=== PATIENT | female | born 1970 | race Caucasian/White ===

== ENCOUNTER 2018-09-08 12:23 | Day surgery (SDC) | payer OTHER ==
[2018-09-07 12:35] VITALS: BMI 52.3
[2018-09-08] MEDS ORDERED: PROPOFOL 20 ML ONE (12:25)
[2018-09-08] MEDS ORDERED: fentaNYL CITRATE 250 MCG/5 ML VIAL ONE (12:25)
[2018-09-08] MEDS ORDERED: SUCCINYLCHOLINE CHLORIDE 200 MG/10 ML VIAL ONE (12:26)
[2018-09-08] MEDS ORDERED: MIDAZOLAM HCL 2 MG/2 ML SINGLE DOSE VIAL ONE (12:27)
[2018-09-08] MEDS ORDERED: LIDOCAINE HCL 1%, 10 MG/ML (20ML VIAL) ONE (13:32)
[2018-09-08] MEDS ORDERED: BUPIVACAINE HCL/PF 0.5% (5MG/ML) 10 ML VIAL ONE (13:32)
--- NOTE | 2018-09-08 13:52 | HP ---
History & Physical Update - History History: No Change - Physical Physical: No Change - Assessment Assessment: No Change - Plan Plan: No Change
[2018-09-08] MEDS ORDERED: IBUPROFEN 800 MG/8 ML IJ IVPB SCH (14:00)
[2018-09-08] MEDS ORDERED: DEXTROSE 5%-0.45% SALINE 1,000 ML IV SCH (14:00)
[2018-09-08] MEDS ORDERED: VASOPRESSIN 20 UNITS/ML VIAL IV ONE ×2 (14:05→14:08)
[2018-09-08] MEDS ORDERED: ceFAZolin SODIUM 1 GM VIAL IVPB ONE (14:07)
[2018-09-08] MEDS ORDERED: EPINEPHrine 1:10,000 (P-F SYR) 1 MG/10 ML DISP.SYRIN ONE (14:34)
[2018-09-08] MEDS ORDERED: ePHEDrine SULFATE 50 MG/1 ML AMPULE ONE (14:36)
[2018-09-08] MEDS ORDERED: ACETAMINOPHEN INJECTION 100 ML IVPB ONE (14:41)
[2018-09-08] MEDS ORDERED: ACETAMINOPHEN 1000 MG/100 ML VIAL (NON FORMULARY) IVPB ONE (14:42)
[2018-09-08 18:00] VITALS: BP 139/72; PULSE 96; TEMP 98.5
--- NOTE | 2018-09-09 10:35 | OP ---
DATE OF OPERATION: 09/08/2018 SURGEON: Abelardo Moreno MD PREOPERATIVE DIAGNOSIS: Stress urinary incontinence, hypermobile urethra. POSTOPERATIVE DIAGNOSIS: Stress urinary incontinence, hypermobile urethra. PROCEDURE: Suburethral sling placement and cystoscopy. ANESTHESIA: General. ESTIMATED BLOOD LOSS: 200 mL. DRAINS: Lopez catheter. SPECIMENS: None. PREOPERATIVE INDICATIONS: The patient is 47-year-old female who has stress urinary incontinence and hypermobile urethra proven on urodynamic exam. She comes to the OR for a sling placement. OPERATION: The patient was brought to the OR, placed on the table in the supine position, given general anesthesia and IV antibiotics, and placed in the modified lithotomy position. The groin was prepped and draped sterilely. Time-out was performed. Lopez catheter was placed. The mid third of the urethra was marked out with a marking pen. Putrescin was injected underneath the vagina mucosa hydrodissecting. Incision was then made over the midline of the urethra. The vaginal mucosa was sharply dissected off the periurethral tissues in a lateral fashion. The bladder was emptied. The mini-sling was then applied, transobturator, using the trocars under fingertip control. No buttonholing of the vaginal mucosa was identified. The sling was placed on both sides. Cystoscopy was performed and revealed no evidence of any perforation or bleeding or injury. Lopez catheter was replaced. The sling was tightened using a tightening suture so it laid flat with no tension over the portion of the urethra. The excess suture was then excised. The wound was then closed using 2-0 Vicryl suture. Vaginal packing was left in place, and the patient was then woken up. ABELARDO MORENO M.D. [id number]
== END 2018-09-08 18:05 | disposition home or self-care (01) ==
LOC: JASU-SURG 12:23
PROVIDERS: ATTEND Urology
PROC: 0TSD4ZZ Reposition Urethra, Percutaneous Endoscopic Approach (ICD-10-PCS; principal; 2018-09-08 13:30)
DX: N39.3 Stress incontinence (female) (male) (principal); N36.41 Hypermobility of urethra
CPT/HCPCS: 57288; C1771; 84703; 94760; J0131

== ENCOUNTER 2019-05-26 09:52 | Emergency (ER) | payer OTHER ==
[2019-05-26 09:59] VITALS: BP 167/97; PULSE 106; TEMP 98.1; BMI 50.5
[2019-05-26] MEDS ORDERED: SUMATRIPTAN SUCCINATE 6 MG/0.5 ML VIAL SQ ONE (10:41)
[2019-05-26] MEDS ORDERED: MECLIZINE HCL 25 MG TABLET (FP) PO ONE (10:41)
[2019-05-26] MEDS ORDERED: MECLIZINE HCL 25 MG TABLET (FP) ONE (10:50)
[2019-05-26] MEDS ORDERED: SUMATRIPTAN SUCCINATE 6 MG/0.5 ML VIAL ONE (10:50)
--- NOTE | 2019-05-26 10:58 | PDOC ---
History of Present Illness - General Chief Complaint: Headache Stated Complaint: CHRONIC HEADACHE Time Seen by Provider: 05/26/19 10:30 History Source: Patient Exam Limitations: Clinical Condition - History of Present Illness Initial Comments: 05/26/19 10:52 Patient with history of gastritis presented with complaint of worsening posterior headache, photophobia, spinning sensation with dizziness since yesterday. Patient reported she had a similar episode yesterday morning when she got off from bed in the morning with dizziness and spinning sensation as soon as she got up from bed which resolved after few minutes but came back again this morning with worsening headache and whistling noise in the right ear. Patient report history of intermittent mild headaches but not this severe. Patient denies history of migraines or vertigo. Denies nausea, vomiting, chest pain, shortness of breath, palpitation. Denies any other symptoms. Patient did not take anything for symptoms Timing/Duration: reports: 24 hours, increasing Severity: Yes: moderate Associated Symptoms: reports: denies symptoms Past History - Past Medical History Allergies/Adverse Reactions: Allergies Allergy/AdvReac Type Severity Reaction Status Date / Time Penicillins Allergy Unknown Rash Verified 05/26/19 09:59 Home Medications: Ambulatory Orders levoFLOXacin [Levaquin -] 500 mg PO DAILY #7 tablet 09/08/18 Butalb/Acetaminophen/Caffeine [Fioricet 50-300-40 mg Capsule] 1 each PO Q6H PRN #20 capsule 05/26/19 Anemia: No Asthma: No Cancer: No Cardiac Disorders: No CVA: No COPD: No CHF: No Dementia: No Diabetes: No GI Disorders: No Disorders: No HTN: No Hypercholesterolemia: No Liver Disease: No Seizures: No Thyroid Disease: No - Surgical History Abdominal Surgery: No Appendectomy: No Cardiac Surgery: No Cholecystectomy: No Lung Surgery: No Neurologic Surgery: No Orthopedic Surgery: No - Immunization History Immunization Up to Date: Yes - Psycho Social/Smoking Cessation Hx Smoking History: Never smoked Have you smoked in the past 12 months: No Information on smoking cessation initiated: No Hx Alcohol Use: No Drug/Substance Use Hx: No Substance Use Type: None Review of Systems - Review of Systems Able to Perform ROS?: Yes Is the patient limited Malian proficient: No Constitutional: No: Chills, Fever, Malaise HEENTM: Yes: Symptoms Reported, See HPI, Recent change in vision (photophobia). No: Eye Pain, Blurred Vision, Tearing, Double Vision, Cataracts, Ear Pain, Ocular Prothesis, Ear Discharge, Nose Pain, Nose Congestion, Tinnitus, Nose Bleeding, Hearing Loss, Throat Pain, Throat Swelling, Mouth Pain, Dental Problems, Difficulty Swallowing, Mouth Swelling, Other Respiratory: No: Symptoms reported, See HPI, Cough, Orthopnea, Shortness of Breath, SOB with Exertion, SOB at Rest, Stridor, Wheezing, Productive cough, Hemoptysis, Other Cardiac (ROS): No: Symptoms Reported, See HPI, Chest Pain, Edema, Irregular Heart Rate, Lightheadedness, Palpitations, Syncope, Chest Tightness, Other ABD/GI: No: Symptoms Reported, Nausea, Vomiting Musculoskeletal: No: Symptoms Reported Integumentary: No: Symptoms Reported Neurological: Yes: Symptoms reported, See HPI, Headache, Dizziness. No: Numbness, Paresthesia, Pre-Existing Deficit, Seizure, Weakness, Unsteady Gait All Other Systems: Reviewed and Negative *Physical Exam - Vital Signs Last Vital Signs Temp Pulse Resp BP Pulse Ox 98.1 F 106 H 19 167/97 97 05/26/19 09:55 05/26/19 09:55 05/26/19 09:55 05/26/19 09:55 05/26/19 09:55 - Physical Exam Comments: 05/26/19 10:56 GENERAL: Well developed, well nourished. Awake and alert in moderate acute distress. HEENT: Normal bilateral external ear canal without erythema. Tympanic membrane normal bilateral. Normocephalic, atraumatic. PERRLA, EOMI. No conjunctival pallor. Sclera are non-icteric. Moist mucous membranes. Oropharynx is clear. NECK: Supple. Full ROM. No JVD. Carotid pulses 2+ and symmetric, without bruits. No thyromegaly. No lymphadenopathy. CARDIOVASCULAR: Regular rate and rhythm. No murmurs, rubs, or gallops. Distal pulses are 2+ and symmetric. PULMONARY: No evidence of respiratory distress. Lungs clear to auscultation bilaterally. No wheezing, rales or rhonchi. ABDOMINAL: Soft. Non-tender. Non-distended. No rebound or guarding. No organomegaly. Normoactive bowel sounds. MUSCULOSKELETAL Normal range of motion at all joints. No bony deformities or tenderness. SKIN: Warm and dry. Normal capillary refill. No rashes. No jaundice. NEUROLOGICAL: Alert, awake, appropriate. Cranial nerves 2-12 intact. No motor deficits in the in face, upper extremities and lower extremities. Normal speech. Toes are down- going bilaterally. Gait is normal without ataxia. PSYCHIATRIC: Cooperative. Good eye contact. Appropriate mood and affect. General Appearance: Yes: Nourished, Appropriately Dressed, Apparent Distress ED Treatment Course - LABORATORY CBC & Chemistry Diagram: 05/26/19 12:20 05/26/19 12:20 - RADIOLOGY Radiology Studies Ordered: Category Date Time Status HEAD CT WITHOUT CONTRAST [CT] Stat CT Scan 05/26/19 10:43 Ordered Medical Decision Making - Medical Decision Making 05/26/19 10:54 Patient with history of gastritis presented with complaint of worsening posterior headache, photophobia, spinning sensation with dizziness since yesterday. Patient reported she had a similar episode yesterday morning when she got off from bed in the morning with dizziness and spinning sensation as soon as she got up from bed which resolved after few minutes but came back again this morning with worsening headache and whistling noise in the right ear. Patient report history of intermittent mild headaches but not this severe. Patient denies history of migraines or vertigo. Denies nausea, vomiting, chest pain, shortness of breath, palpitation. Denies any other symptoms. Patient did not take anything for symptoms Exam significant for patient with acute distress and normal neuro exam. Bilateral ear canals normal. Patient symptoms likely migraine headaches with aura versus vertigo versus less likely intracranial mass. Imitrex ordered for migraine and meclizine 25 mg p.o. ordered for vertigo. Head CT without contrast ordered to rule out acute intracranial pathology. Reassess after imaging 05/26/19 12:[address] unremarkable. Patient given imitrex and meclizine but report still have HOLDER. IV reglan 10mg, Tylenol 1g IV and NS 1L ordered. CBC and chemistry labs ordered. EKG shows NSR. 05/26/19 14:18 Patient report marked improvement in symptoms after IV Tylenol, fluids and reglan and report now only has 3/10 headache from 10/10 HOLDER on presentation. Patient stable for discharge on fioricet prn for HOLDER with neurologist f/u. Strict f/u instruction given to Pt including worsening HOLDER and advised to come right back to ED for reassessment. Patient voiced understanding and stable for discharge Discharge - Discharge Information Problems reviewed: Yes Clinical Impression/Diagnosis: Migraine headache with aura Qualifiers: Status migrainosus presence: without status migrainosus Intractability: not intractable Qualified Code(s): G43.109 - Migraine with aura, not intractable, without status migrainosus Condition: Stable Disposition: HOME - Admission No - Additional Discharge Information Prescriptions: Butalb/Acetaminophen/Caffeine [Fioricet 50-300-40 mg Capsule] 1 each PO Q6H PRN #20 capsule PRN Reason: Headache - Follow up/Referral Referrals: Orville Luke MD [Staff Physician] - - Patient Discharge Instructions Patient Printed Discharge Instructions: DI for Migraine Additional Instructions: Your labs and head CAT scan is normal. your symptoms is likely caused by migraine headache. Take prescribed medication as needed for Headaches. Follow- up with referred neurologist. Come back to ED if worsening headaches, blurry vision, change in vision, dizziness with vomiting - Post Discharge Activity
[2019-05-26] MEDS ORDERED: ACETAMINOPHEN INJECTION 100 ML IVPB ONE (11:49)
[2019-05-26] MEDS ORDERED: SODIUM CHLORIDE 1,000 ML IV STA (11:49)
[2019-05-26] MEDS ORDERED: METOCLOPRAMIDE HCL INJECTION 10 MG/2 ML VIAL IVPUSH ONE (11:50)
[2019-05-26] MEDS ORDERED: ACETAMINOPHEN 1000 MG/100 ML VIAL (NON FORMULARY) IVPB ONE (11:50)
--- NOTE | 2019-05-26 12:01 | PDOC ---
*Physical Exam - Vital Signs Last Vital Signs Temp Pulse Resp BP Pulse Ox 98.1 F 106 H 19 167/97 97 05/26/19 09:55 05/26/19 09:55 05/26/19 09:55 05/26/19 09:55 05/26/19 09:55 ED Treatment Course - LABORATORY CBC & Chemistry Diagram: 05/26/19 12:20 05/26/19 12:20 - Medications Given in the ED: ED Medications Discontinued Medications Generic Name Dose Route Start Last Admin Trade Name Radha PRN Reason Stop Dose Admin Meclizine HCl 25 mg 05/26/19 10:41 05/26/19 11:35 Antivert - PO 05/26/19 10:42 25 mg ONCE ONE Administration Sumatriptan Succinate 6 mg 05/26/19 10:41 05/26/19 11:35 Imitrex Injection - SQ 05/26/19 10:42 6 mg ONCE ONE Administration Medical Decision Making - Medical Decision Making 05/26/19 11:51 Ms. Reyes is being seen primarily by SHANIQUE Willingham Pt presents to the Er with a complaint of a headache Her symptoms began actually 2 days ago She awoke with a headache on Wednesday which was frontal Pt took Advil 400mg in the am and then in the evening She fell asleep She had no headache on (yesterday) She awoke this am with a severe occipital headache as well as neck pain She took Advil 800mg (400mg was Advil PM which made her fall asleep) She continue to have a headache No fevers or chills No head trauma Headache is different than typical headache - location and persistence Headache is also associated with dizziness Pt was already given Imitrex and Meclizine Pt appears to be in pain Is slow to respond but is awake and alert Answers questions appropriately RRR CTA No abd tenderness no nuchal rigidity Pt headache is concerning to me GREGORY asked to do basic labs, Place IV, give Reglan and IV tylenol Pt placed in dark room to lay down GREGORY asked to consult neuro He reviewed this patient's case with Dr Luke who was in the ER Dr. Luke states that this patient is likely having a tension headache and would not benefit from a CTA If headache persists, pt can be admitted and he will see her in the hospital 05/26/19 12:03 EKG: NSR rate of 88 bpm , axis nml, intervals nml (including QTc 450ms), no st elevation or depression 05/26/19 13:24 Patient states headache has resolved Laboratory Tests 05/26/19 05/26/19 05/26/19 12:20 12:20 12:20 WBC 10.0 Hgb 13.5 Hct 41.2 Plt Count 318 BUN 13.2 Creatinine 0.7 Serum , Qual Negative Discharge - Discharge Information Problems reviewed: Yes Clinical Impression/Diagnosis: Migraine headache with aura Qualifiers: Status migrainosus presence: without status migrainosus Intractability: not intractable Qualified Code(s): G43.109 - Migraine with aura, not intractable, without status migrainosus Condition: Stable Disposition: HOME - Admission No - Additional Discharge Information Prescriptions: Butalb/Acetaminophen/Caffeine [Fioricet 50-300-40 mg Capsule] 1 each PO Q6H PRN #20 capsule PRN Reason: Headache - Follow up/Referral Referrals: Orville Luke MD [Staff Physician] - - Patient Discharge Instructions Patient Printed Discharge Instructions: DI for Migraine Additional Instructions: Your labs and head CAT scan is normal. your symptoms is likely caused by migraine headache. Take prescribed medication as needed for Headaches. Follow- up with referred neurologist. Come back to ED if worsening headaches, blurry vision, change in vision, dizziness with vomiting - Post Discharge Activity
[2019-05-26 12:40] LABS: BASO % 3.4 % (0-2.0); EOS % 1.8 % (0-4.5); HEMATOCRIT 41.2 % (32.4-45.2); HEMOGLOBIN 13.5 GM/dL (10.7-15.3); LYMPH % 42.6 % (8-40); MCH 30.7 pg (25.7-33.7); MCHC 32.7 g/dl (32.0-36.0); MEAN CELL VOLUME 93.7 fl (80-96); MEAN PLT VOLUME 8.1 fl (7.5-11.1); MONO % 8.2 % (3.8-10.2); PLATELET COUNT 318 K/MM3 (134-434); RBC 4.39 M/mm3 (3.60-5.2); RDW 14.1 % (11.6-15.6)
[2019-05-26 13:00] LABS: ALBUMIN 3.5 g/dl (3.4-5.0); ALK PHOS 92 U/L (45-117); ANION GAP 5 MMOL/L (8-16); BILIRUBIN,TOTAL < 0.1 mg/dL (0.2-1); BLOOD UREA NITROGEN 13.2 mg/dL (7-18); CALCIUM 8.9 mg/dL (8.5-10.1); CHLORIDE 109 mmol/L (98-107); CO2 27 mmol/L (21-32); CREATININE 0.7 mg/dL (0.55-1.3); GLUCOSE,RANDOM 76 mg/dL (74-106); POTASSIUM 4.7 mmol/L (3.5-5.1); SGOT/AST 21 U/L (15-37); SGPT/ALT 32 U/L (13-61); SODIUM 140 mmol/L (136-145); TOT PROT 8.1 g/dl (6.4-8.2)
--- NOTE | 2019-05-29 11:49 | EKG ---
Test Reason : Blood Pressure : / mmHG Vent. Rate : 088 BPM Atrial Rate : 088 BPM P-R Int : 180 ms QRS Dur : 080 ms QT Int : 372 ms P-R-T Axes : 030 004 041 degrees QTc Int : 450 ms NORMAL SINUS RHYTHM NORMAL ECG NO PREVIOUS ECGS AVAILABLE Confirmed by BRGIIDO GUILLEN MD ([id number]) on 05/29/2019 11:49:14 AM Referred By: Confirmed By:BRIGIDO GUILLEN MD
== END 2019-05-26 14:30 | disposition home or self-care (01) ==
LOC: JER 09:52
PROC: 3E0337Z Introduction of Electrolytic and Water Balance Substance into Peripheral Vein, Percutaneous Approach (ICD-10-PCS; principal; 2019-05-26)
PROC: 3E033NZ Introduction of Analgesics, Hypnotics, Sedatives into Peripheral Vein, Percutaneous Approach (ICD-10-PCS; 2019-05-26)
PROC: 3E033GC Introduction of Other Therapeutic Substance into Peripheral Vein, Percutaneous Approach (ICD-10-PCS; 2019-05-26)
PROC: 3E023GC Introduction of Other Therapeutic Substance into Muscle, Percutaneous Approach (ICD-10-PCS; 2019-05-26)
DX: G43.109 Migraine with aura, not intractable, without status migrainosus (principal); Z88.0 Allergy status to penicillin
CPT/HCPCS: 36415; 70450-TC; 80053; 84703; 85025; 93005; 93010; 99282-25; J0131; J7030

== ENCOUNTER 2020-12-31 00:34 | Emergency (ER) | payer OTHER ==
[2020-12-31 01:10] VITALS: TEMP 99.3; BMI 52.7
[2020-12-31] MEDS ORDERED: CLINDAMYCIN 900 MG PREMIX IVPB 900 MG/50 ML BAG IVPB ONE ×2 (01:28→02:10)
[2020-12-31] MEDS ORDERED: ACETAMINOPHEN 1000 MG/100 ML VIAL (NON FORMULARY) IVPB ONE (01:34)
[2020-12-31] MEDS ORDERED: ACETAMINOPHEN INJECTION 100 ML IVPB ONE (02:10)
[2020-12-31 02:38] LABS: HEMATOCRIT 31.3 % (32.4-45.2); HEMOGLOBIN 10.1 GM/dL (10.7-15.3); MCH 29.1 pg (25.7-33.7); MCHC 32.1 g/dl (32.0-36.0); MEAN CELL VOLUME 90.6 fl (80-96); PLATELET COUNT 362 10^3/uL (134-434); RBC 3.46 M/mm3 (3.60-5.2); WHITE BLOOD COUNT 20.7 K/mm3 (4.0-10.0)
[2020-12-31] MEDS ORDERED: SODIUM CHLORIDE 0.9% 500 ML INFUS.BAG IV ONE (02:41)
[2020-12-31] MEDS ORDERED: MORPHINE SULFATE 2 MG/ML VIAL ONE (02:41)
[2020-12-31] MEDS ORDERED: morphine CARPU-JECT 2 MG/1 ML DISP.SYRIN IM ONE (02:41)
[2020-12-31 02:50] VITALS: BP 103/59; PULSE 103
[2020-12-31 03:00] LABS: ALBUMIN 2.5 g/dl (3.4-5.0); BLOOD UREA NITROGEN 10.3 mg/dL (7-18); CALCIUM 7.8 mg/dL (8.5-10.1)
[2020-12-31 03:05] LABS: BILIRUBIN,TOTAL 0.2 mg/dL (0.2-1)
[2020-12-31 03:07] LABS: CREATININE 0.7 mg/dL (0.55-1.3)
== END 2020-12-31 02:40 | disposition short-term general hospital (02) ==
LOC: JER 00:34
PROC: 3E033GC Introduction of Other Therapeutic Substance into Peripheral Vein, Percutaneous Approach (ICD-10-PCS; principal; 2020-12-31)
PROC: 3E023GC Introduction of Other Therapeutic Substance into Muscle, Percutaneous Approach (ICD-10-PCS; principal; 2020-12-31)
DX: N61.0 Mastitis without abscess (principal)
CPT/HCPCS: 36415; 71275-TC; 80053; 82550; 83605; 85027; 86850; 86900; 86901; 87040; 99285-25; C9803; J0131; U0003; U0005

== ENCOUNTER 2021-09-26 11:33 | Emergency (ER) | payer OTHER ==
[2021-09-26 11:54] VITALS: BP 144/65; PULSE 86; TEMP 98.1; BMI 50.8
[2021-09-26] MEDS ORDERED: ACETAMINOPHEN 500 MG TABLET (FP) PO ONE (13:33)
[2021-09-26] MEDS ORDERED: ACETAMINOPHEN 500 MG TABLET (FP) ONE (15:02)
[2021-09-26 15:16] LABS: BASO % 0.7 % (0-2.0); EOS % 1.2 % (0-4.5); HEMATOCRIT 35.5 % (32.4-45.2); HEMOGLOBIN 11.9 GM/dL (10.7-15.3); LYMPH % 45.9 % (8-40); MCH 31.2 pg (25.7-33.7); MCHC 33.6 g/dl (32.0-36.0); MEAN CELL VOLUME 92.6 fl (80-96); MONO % 8.1 % (3.8-10.2); NEUT % 44.1 % (42.8-82.8); PLATELET COUNT 342 10^3/uL (134-434); RBC 3.84 M/mm3 (3.60-5.2); RDW 14.4 % (11.6-15.6); WHITE BLOOD COUNT 9.9 K/mm3 (4.0-10.0)
[2021-09-26 15:21] LABS: EPI CELLS 15 /uL (0-25.1); HYALINE CASTS 1 /uL (0-3.1); URINE APPEARANCE CLEAR; URINE BACTERIA 135 /uL (0-1359); URINE BILIRUBIN NEGATIVE (NEGATIVE); URINE COLOR YELLOW; URINE GLUCOSE (UA) NEGATIVE (NEGATIVE); URINE KETONE TRACE (NEGATIVE); URINE LEUK ESTERASE NEGATIVE (NEGATIVE); URINE NITRITE NEGATIVE (NEGATIVE); URINE PROTEIN NEGATIVE (NEGATIVE); URINE RBC 9 /uL (0-23.9); URINE UROBILINOGEN 0.2 mg/dL (0.2-1.0); URINE WBC 6 /uL (0-25.8)
[2021-09-26 15:22] LABS: INR 1.05 (0.83-1.09); PROTHROMBIN TIME (PATIENT) 12.1 SEC (9.7-13.0)
[2021-09-26 15:25] LABS: ACTIVATED PTT 28.2 SECONDS (25.2-36.5)
[2021-09-26 15:40] LABS: CALCIUM 8.3 mg/dL (8.5-10.1)
[2021-09-26 15:41] LABS: ALBUMIN 3.2 g/dl (3.4-5.0); BLOOD UREA NITROGEN 15.2 mg/dL (7-18)
[2021-09-26 15:44] LABS: CREATININE 0.6 mg/dL (0.55-1.3)
[2021-09-26 15:45] LABS: BILIRUBIN,TOTAL 0.2 mg/dL (0.2-1); TOT PROT 7.8 g/dl (6.4-8.2)
[2021-09-26 15:49] LABS: URINE CRYSTALS CA OXALATE /hpf
== END 2021-09-26 16:53 | disposition home or self-care (01) ==
LOC: JER 11:33
DX: N92.1 Excessive and frequent menstruation with irregular cycle (principal)
CPT/HCPCS: 36415; 76830-TC; 80053; 81003; 84703; 85025; 85610; 85730; 87086; 87491; 87591; 99284-25

== ENCOUNTER 2021-12-17 19:19 | Observation (INO) | payer OTHER ==
[2021-12-17 19:30] VITALS: BMI 51.7
[2021-12-17 23:18] LABS: BASO % 0.2 % (0-2.0); EOS % 1.6 % (0-4.5); HEMATOCRIT 22.1 % (32.4-45.2); LYMPH % 44.9 % (8-40); MCH 26.4 pg (25.7-33.7); MCHC 31.5 g/dl (32.0-36.0); MEAN CELL VOLUME 83.7 fl (80-96); MEAN PLT VOLUME 6.6 fl (7.5-11.1); MONO % 8.5 % (3.8-10.2); NEUT % 44.8 % (42.8-82.8); PLATELET COUNT 508 10^3/uL (134-434); RBC 2.64 M/mm3 (3.60-5.2); RDW 16.8 % (11.6-15.6); WHITE BLOOD COUNT 12.7 K/mm3 (4.0-10.0)
[2021-12-17 23:20] LABS: HEMOGLOBIN 6.9 GM/dL (10.7-15.3)
[2021-12-17 23:24] LABS: INR 1.04 (0.83-1.09)
[2021-12-17 23:42] LABS: ALBUMIN 3.1 g/dl (3.4-5.0); CALCIUM 8.4 mg/dL (8.5-10.1)
[2021-12-17 23:43] LABS: BLOOD UREA NITROGEN 13.6 mg/dL (7-18)
[2021-12-17 23:46] LABS: CREATININE 0.6 mg/dL (0.55-1.3)
[2021-12-17 23:47] LABS: BILIRUBIN,TOTAL 0.1 mg/dL (0.2-1); TOT PROT 7.4 g/dl (6.4-8.2)
[2021-12-18 09:28] LABS: BASO % 0.5 % (0-2.0); EOS % 1.9 % (0-4.5); HEMATOCRIT 23.7 % (32.4-45.2); HEMOGLOBIN 7.7 GM/dL (10.7-15.3); MCH 27.4 pg (25.7-33.7); MCHC 32.4 g/dl (32.0-36.0); MEAN CELL VOLUME 84.8 fl (80-96); MEAN PLT VOLUME 7.3 fl (7.5-11.1); MONO % 9.3 % (3.8-10.2); NEUT % 57.3 % (42.8-82.8); PLATELET COUNT 457 10^3/uL (134-434); RBC 2.79 M/mm3 (3.60-5.2); WHITE BLOOD COUNT 10.8 K/mm3 (4.0-10.0)
[2021-12-18 09:53] LABS: ALBUMIN 2.9 g/dl (3.4-5.0); BLOOD UREA NITROGEN 12.8 mg/dL (7-18); CALCIUM 8.2 mg/dL (8.5-10.1); MAGNESIUM 2.1 mg/dL (1.8-2.4)
[2021-12-18 09:56] LABS: BILIRUBIN,TOTAL 0.4 mg/dL (0.2-1); CHOLESTEROL 129 mg/dL (50-200); CREATININE 0.5 mg/dL (0.55-1.3); PHOSPHOROUS 3.5 mg/dL (2.5-4.9); TOT PROT 6.8 g/dl (6.4-8.2)
[2021-12-18 09:59] LABS: LDL CHOLESTEROL (ONLY SJRH) 88 mg/dL (5-100)
[2021-12-18 10:00] LABS: HDL CHOLESTEROL 41 mg/dL (40-60)
[2021-12-18 10:03] LABS: TRIGLYCERIDES 72 mg/dL (0-150)
[2021-12-18] MEDS ORDERED: ACETAMINOPHEN 325 MG TABLET (FP) PO PRN (11:41)
[2021-12-18] MEDS ORDERED: amLODIPine BESYLATE 2.5 MG TABLET (FP) PO ONE (12:00)
[2021-12-18] MEDS ORDERED: ACETAMINOPHEN 325 MG TABLET (FP) ONE (12:21)
[2021-12-18 18:17] LABS: BASO % 0.1 % (0-2.0); EOS % 1.8 % (0-4.5); HEMATOCRIT 27.8 % (32.4-45.2); HEMOGLOBIN 9.1 GM/dL (10.7-15.3); LYMPH % 41.4 % (8-40); MCH 27.7 pg (25.7-33.7); MCHC 32.5 g/dl (32.0-36.0); MEAN PLT VOLUME 6.7 fl (7.5-11.1); MONO % 8.4 % (3.8-10.2); NEUT % 48.3 % (42.8-82.8); PLATELET COUNT 458 10^3/uL (134-434); RBC 3.27 M/mm3 (3.60-5.2); RDW 15.8 % (11.6-15.6); WHITE BLOOD COUNT 12.3 K/mm3 (4.0-10.0)
[2021-12-18 18:47] VITALS: BP 157/87; PULSE 92; TEMP 98.3
== END 2021-12-18 19:30 | disposition home or self-care (01) ==
LOC: JER 19:19 → JERBED 23:22
PROVIDERS: ADMIT Internal Medicine; ATTEND Nurse Practitioner Family
PROC: 30233N1 Transfusion of Nonautologous Red Blood Cells into Peripheral Vein, Percutaneous Approach (ICD-10-PCS; principal; 2021-12-17)
DX: D64.89 Other specified anemias (principal); D21.9 Benign neoplasm of connective and other soft tissue, unspecified; E66.01 Morbid (severe) obesity due to excess calories; R42 Dizziness and giddiness; I10 Essential (primary) hypertension; Z68.43 Body mass index [BMI] 50.0-59.9, adult; Z29.8 Encounter for other specified prophylactic measures; Z88.0 Allergy status to penicillin
CPT/HCPCS: 36415; 36430; 71045-TC-FY; 80053; 80061; 83036; 83735; 84100; 84443; 84484; 85025; 85610; 85730; 86304; 86850; 86900; 86901; 86922; 93005; 93010; 99285-25; C9803-CS; G0378; P9058; U0003; U0005

== ENCOUNTER 2022-02-07 13:52 | Emergency (ER) | payer OTHER ==
[2022-02-07 14:18] VITALS: BMI 47.3
[2022-02-07] MEDS ORDERED: ACETAMINOPHEN 1000 MG/100 ML BAG IVPB ONE (14:41)
[2022-02-07] MEDS ORDERED: morphine SULFATE 4 MG/ML VIAL IVPUSH ONE (14:41)
[2022-02-07] MEDS ORDERED: morphine SULFATE 4 MG/ML VIAL ONE ×2 (15:05→20:37)
[2022-02-07] MEDS ORDERED: ACETAMINOPHEN INJECTION 100 ML IVPB ONE (15:05)
[2022-02-07 15:35] LABS: HEMATOCRIT 34.6 % (32.4-45.2); HEMOGLOBIN 11.6 GM/dL (10.7-15.3); MCHC 33.5 g/dl (32.0-36.0); MEAN CELL VOLUME 86.6 fl (80-96); MEAN PLT VOLUME 7.5 fl (7.5-11.1); PLATELET COUNT 493 10^3/uL (134-434); RDW 18.2 % (11.6-15.6); WHITE BLOOD COUNT 21.1 K/mm3 (4.0-10.0)
[2022-02-07 15:41] LABS: INR 1.35 (0.83-1.09); PROTHROMBIN TIME (PATIENT) 15.6 SEC (9.7-13.0)
[2022-02-07] MEDS ORDERED: SODIUM CHLORIDE 0.9% 500 ML INFUS.BAG IV ONE (15:41)
[2022-02-07 15:44] LABS: ACTIVATED PTT 30.9 SECONDS (25.2-36.5)
[2022-02-07 15:59] LABS: ANISOCYTOSIS 1+; MACROCYTOSIS 0
[2022-02-07 16:00] LABS: CHLORIDE 101 mmol/L (98-107); SODIUM 139 mmol/L (136-145)
[2022-02-07] MEDS ORDERED: CEFTRIAXONE 1 GM in DEXTROSE 5%-WATER - 50 ML IVPB ONE (16:00)
[2022-02-07] MEDS ORDERED: DOXYCYCLINE HYCLATE 100 MG CAPSULE PO ONE ×2 (16:01→16:36)
[2022-02-07 16:03] LABS: ALBUMIN 2.8 g/dl (3.4-5.0); ANION GAP 13 MMOL/L (8-16); BLOOD UREA NITROGEN 10.2 mg/dL (7-18); CO2 26 mmol/L (21-32); GLUCOSE,RANDOM 101 mg/dL (74-106)
[2022-02-07 16:06] LABS: CREATININE 0.9 mg/dL (0.55-1.3); SGOT/AST 23 U/L (15-37); SGPT/ALT 24 U/L (13-61)
[2022-02-07 16:07] LABS: BILIRUBIN,TOTAL 0.6 mg/dL (0.2-1)
[2022-02-07 16:08] LABS: TOT PROT 8.1 g/dl (6.4-8.2)
[2022-02-07 16:09] LABS: ALK PHOS 88 U/L (45-117)
[2022-02-07] MEDS ORDERED: SODIUM CHLORIDE 1,000 ML IV ONE (16:19)
[2022-02-07] MEDS ORDERED: CEFTRIAXONE 1 GM/50 ML BAG ONE (16:37)
[2022-02-07 16:47] LABS: VENOUS BASE EXCESS -3.9 mmol/L (-2-2); VENOUS O2 SATURATION 98.3 % (70-80); VENOUS PH 7.376 (7.310-7.410)
[2022-02-07 17:01] LABS: URINE APPEARANCE CLOUDY; URINE BILIRUBIN SMALL (NEGATIVE); URINE COLOR ORANGE; URINE GLUCOSE (UA) NEGATIVE (NEGATIVE); URINE KETONE 15 mg/dl (NEGATIVE)
[2022-02-07 17:02] LABS: EPI CELLS 111.5 /uL (0-25.1); HYALINE CASTS 64.45 /uL (0-3.1); PH,URINE 5.5 (5.0-8.0); URINE BACTERIA 94.5 /uL (0-1359); URINE LEUK ESTERASE TRACE (NEGATIVE); URINE NITRITE POSITIVE (NEGATIVE); URINE PROTEIN 300 (NEGATIVE); URINE RBC 7.6 /uL (0-23.9); URINE WBC 38.1 /uL (0-25.8)
[2022-02-07] MEDS ORDERED: morphine CARPU-JECT 4 MG/1 ML DISP.SYRIN IVPUSH ONE (20:36)
[2022-02-07 22:55] VITALS: BP 134/81; PULSE 111; RESP 20; TEMP 98.7
[2022-02-08] MEDS ORDERED: HYDROmorphone HCL CARPU-JECT 2 MG/1 ML DISP.SYRIN IVPUSH ONE (00:36)
[2022-02-08] MEDS ORDERED: HYDROmorphone HCl 2 MG/ML VIAL ONE (00:41)
== END 2022-02-08 01:18 | disposition short-term general hospital (02) ==
LOC: JER 13:52
PROC: 3E033NZ Introduction of Analgesics, Hypnotics, Sedatives into Peripheral Vein, Percutaneous Approach (ICD-10-PCS; principal; 2022-02-07)
PROC: 3E033GC Introduction of Other Therapeutic Substance into Peripheral Vein, Percutaneous Approach (ICD-10-PCS; 2022-02-07)
PROC: 3E03329 Introduction of Other Anti-infective into Peripheral Vein, Percutaneous Approach (ICD-10-PCS; 2022-02-07)
PROC: 3E0337Z Introduction of Electrolytic and Water Balance Substance into Peripheral Vein, Percutaneous Approach (ICD-10-PCS; 2022-02-07)
PROC: 3E033GC Introduction of Other Therapeutic Substance into Peripheral Vein, Percutaneous Approach (ICD-10-PCS; 2022-02-07)
PROC: 3E033GC Introduction of Other Therapeutic Substance into Peripheral Vein, Percutaneous Approach (ICD-10-PCS; 2022-02-08)
DX: N89.8 Other specified noninflammatory disorders of vagina (principal); R10.31 Right lower quadrant pain
CPT/HCPCS: 36415; 71045-TC-FY; 71275-TC; 74177-TC; 76830-TC; 80053; 81003; 82553; 82803; 83605; 84484; 85025; 85610; 85730; 86850; 86900; 86901; 87040; 87070; 87076; 87186; 87205; 87491; 87591; 93005; 93010; 99285-25; C9803-CS; Q9967; U0003; U0005